=== PATIENT | male | born 1970 | race Caucasian/White ===

== ENCOUNTER 2019-07-29 14:48 | Emergency (ER) | payer OTHER ==
[~2019-07-29] VITALS: Ht 185.4 cm; Wt 82.6 kg
[2019-07-29 15:21] VITALS: BP 136/88; Ht 185.4 cm; Wt 82.6 kg
== END 2019-07-29 16:45 | disposition home or self-care (01) ==
LOC: ED 14:48
DX: L03.114 Cellulitis of left upper limb (principal); W57.XXXA Bitten or stung by nonvenomous insect and other nonvenomous arthropods, initial encounter; Y93.89 Activity, other specified; Y92.89 Other specified places as the place of occurrence of the external cause; Y99.8 Other external cause status

== ENCOUNTER 2019-08-03 18:49 | Emergency (ER) | payer OTHER ==
[~2019-08-03] VITALS: Ht 185.4 cm; Wt 82.1 kg
[2019-08-03 18:51] VITALS: BP 144/84; Ht 185.4 cm; Wt 82.1 kg
== END 2019-08-03 19:47 | disposition home or self-care (01) ==
LOC: ED 18:49
DX: S60.862D Insect bite (nonvenomous) of left wrist, subsequent encounter (principal); W57.XXXD Bitten or stung by nonvenomous insect and other nonvenomous arthropods, subsequent encounter